=== PATIENT | male | born 1990 | race Native Hawaiian/Other Pacific Islander ===

== ENCOUNTER 2020-11-14 14:00 | Emergency (ER) | payer BC ==
[~2020-11-14] VITALS: Ht 180.3 cm; Wt 88.5 kg
[2020-11-14 14:00] VITALS: TEMP 100
[2020-11-14 14:45] LABS: PLATELET COUNT 281 K/uL (142-355)
[2020-11-14 14:50] LABS: POTASSIUM 3.5 mmol/L (3.6-5.2); SODIUM 139 mmol/L (136-145)
[2020-11-14 17:07] VITALS: BP 118/76
== END 2020-11-14 17:09 | disposition home or self-care (01) ==
LOC: ED 14:05
PROVIDERS: Family Medicine
DX: T67.8XXA Other effects of heat and light, initial encounter (principal); R73.9 Hyperglycemia, unspecified; X30.XXXA Exposure to excessive natural heat, initial encounter; Y92.320 Baseball field as the place of occurrence of the external cause
CPT/HCPCS: 80053; 80307; 81000; 82550; 84484; 85027; 93005; 96360; 96361; 99284